=== PATIENT | male | born 1985 | race Caucasian/White ===

== ENCOUNTER 2016-12-21 16:37 | Emergency (ER) | payer BC, OTHER ==
[2016-12-21 17:14] VITALS: BP 125/82; PULSE 84; TEMP 97.7; BMI 39.0
--- NOTE | 2016-12-21 17:24 | EDPRACDOC ---
- General Information Stated Complaint: LT SIDED FACIAL PAIN DENTAL PAIN Time Seen by Provider: 12/21/16 17:17 Information Source: Patient Mode Of Arrival: Car Home Medications: Home Medications Carbamazepine [Tegretol] 100 mg PO BID #30 tablet 12/21/16 Clonazepam [Klonopin] 1 mg PO DAILY PRN 12/21/16 Omeprazole 20 mg PO DAILY 12/21/16 Oxycodone Immediate Release [Oxycodone Immediate Release (OxyIR)] 5 mg PO Q6H PRN #15 tab 12/21/16 Allergies/Adverse Reactions: Allergies Allergy/AdvReac Type Severity Reaction Status Date / Time No Known Allergies Allergy Verified 12/21/16 17:21 - History of Present Illness Onset: 1 week HPI: Pt co L facial pain with tenderness to touch and facial swelling, headache. Denies vision changes, n/v, earache, congestion, cough, rash. Pain Severity: Reports: Moderate Relevant History of: Reports: None Modifying Factors: improves with: None Associated Signs and Symptoms: Reports: Sore Throat ED Past Medical History - History Reviewed Yes Nurses notes reviewed and agree except as marked - Patient Medical History Psychological History: Denies: Depression - Social Medical History Smoking Status: Current some day smoker ETOH: Social Substance Abuse: None EDM Review of Systems - Review of Systems Constitutional: No Symptoms Reported. negative: Fever, Chills, Weakness, Fatigue, Loss of Appetite Eyes: No Symptoms Reported. negative: Redness, Blurred Vision, Double Vision, Discharge, Pain, Light Sensitive, Photophobia Ears: No Symptoms Reported. negative: Pain, Hearing Loss, Drainage, Ear Pulling Throat: Pain Nose: No Symptoms Reported. negative: Congestion, Bleeding, Discharge, Injection, Swelling, Deformity, Ecchymosis, Tender, Abrasion, Laceration Mouth: Tooth Pain Respiratory: No Symptoms Reported. negative: Cough, Brassy Cough, Barky Cough, Shortness of Breath, Wheezing, Hemoptysis Cardiovascular: No Symptoms Reported. negative: Chest Pain, Palpitations, Syncope, Edema, Orthopnea, PND, Skin Mottling, Cyanosis Gastrointestinal: No Symptoms Reported. negative: Pain, Constipation, Nausea, Vomiting, Diarrhea, Melena, Formula Intolerance Genitourinary: No Symptoms Reported. negative: Dysuria, Hematuria, Frequency, Discharge, Bleeding, Testicular Pain, Neurological: Headache Musculoskeletal: No Symptoms Reported. negative: Neck, Chestwall, Ribs, Back, Shoulder, Arm, Elbow, Forearm, Wrist, Hand, Pelvis, Hip, Femur, Knee, Leg, Ankle , Foot Integumentary: No Symptoms Reported. negative: Itching, Rash, Bruising, Wound Allergic/Immunologic: No Symptoms Reported. negative: Hives, Itching Hematologic: No Symptoms Reported. negative: Lymphadenopathy, Easy Bruising, Easy Bleeding Psychiatric: No Symptoms Reported. negative: Anxiety, Depression, Hallucinations, Insomnia, Suicidal - Physical Exam Constitutional: Alert Oriented to: Time, Person, Place Last recorded Vital Signs: Last Vital Signs Temp 97.7 F 12/21/16 17:13 Pulse 84 12/21/16 17:13 Resp 20 12/21/16 17:13 BP 125/82 12/21/16 17:13 Pulse Ox 95 12/21/16 17:13 Oxygen Pulse Oxygen Saturation 95 O2 Device Room Air Oxygen Flow Rate Fraction of Inspired Oxygen ( FIO2) - HEENT Head: Normal ( normocephalic) Eye Exam: Normal (PERRL, EOMI, Sclera white) Oropharynx: Normal (Pharynx:Moist without exudate,Gums-no swelling) Tympanic Membrane: Normal ENT EAC: Normal TMJ: Normal Nose: No Symptoms Reported (septum midline) Neck: Normal (FROM, trachea at midline) - Respiratory/Cardiovascular Respiratory: Normal - CTA (BBS clear to auscultation without adventitious sounds ) Cardiovascular: Normal (RRR without murmur, gallop or rub) - GI Auscultation: Normal (NABS) Palpation: Normal (Soft,No rebound or guarding, non distended) Tenderness: Non tender - Integumentary Skin: Normal, Warm, Dry Lymphatics: Normal (no adenopathy) - Neurologic Memory Impaired: Normal Motor Function: Normal (Normal tone, Pulses 2+ No cyanosis or edema, FROM) Mood Description: Normal Perception: Normal ED Tooth Problem Exam - HEENT Face: Normal Gingiva: Normal Palate: Normal Mouth Range of Motion: Normal Sinuses: Normal Oropharynx: Normal Neck: Normal - Other Exam Other Exam Findings: L facial pain with palpation - Differential Diagnosis Trigeminal Neuralgia Decision Time to Discharge: 17:26 - Departure Disposition: Home Condition: Good Final Diagnosis: Trigeminal neuralgia of left side of face Instructions: Trigeminal Neuralgia (ED) Education/Counseling Given To: Patient Education/Counseling Given Regarding: Diagnosis, Treatment, Follow Up Referrals: Deisy Pratt MD [Primary Care Provider] - One Week Prescriptions: New Carbamazepine [Tegretol] 100 mg PO BID #30 tablet Oxycodone Immediate Release [Oxycodone Immediate Release (OxyIR)] 5 mg PO Q6H PRN #15 tab PRN Reason: Pain No Action Omeprazole 20 mg PO DAILY Clonazepam [Klonopin] 1 mg PO DAILY PRN PRN Reason: Anxiety Additional Instructions: Follow up with Personal MD in 1-2 days.
== END 2016-12-21 17:54 | disposition home or self-care (01) ==
LOC: EDMC 16:37
DX: G50.0 Trigeminal neuralgia (principal)
CPT/HCPCS: 99282